=== PATIENT | female | born 1980 | race African-American/Black ===

== ENCOUNTER 2017-09-02 14:26 | Emergency (ER) | payer MEDICAID ==
[~2017-09-02] VITALS: Ht 172.7 cm; Wt 122.5 kg
[2017-09-02] MEDS ORDERED: METOCLOPRAMIDE HCL 10 MG/2 ML VIAL ONE (14:55)
[2017-09-02] MEDS ORDERED: KETOROLAC TROMETHAMINE 30 MG INJ ONE (14:55)
[2017-09-02] MEDS ORDERED: METOCLOPRAMIDE HCL 10 MG/2 ML VIAL IM ONE (15:00)
[2017-09-02] MEDS ORDERED: KETOROLAC TROMETHAMINE 30 MG INJ IM ONE (15:00)
[2017-09-02 17:05] LABS: *URINE HCG, QUAL NEGATIVE (NEGATIVE)
[2017-09-02] MEDS ORDERED: ACETAMINOPHEN ES 500 MG TABLET PO ONE (17:30)
[2017-09-02] MEDS ORDERED: ACETAMINOPHEN ES 500 MG TABLET ONE (17:31)
== END 2017-09-02 19:10 | disposition short-term general hospital (02) ==
LOC: ER 14:26
DX: R51 Headache (principal); Z88.0 Allergy status to penicillin; Z88.2 Allergy status to sulfonamides
CPT/HCPCS: 70450; 84703; A4663; A9150; J1885; J2765